=== PATIENT | female | born 1955 | race Caucasian/White ===

== ENCOUNTER 2019-02-15 07:35 | Inpatient (IN) | payer MEDICARE ==
[~2019-02-15] VITALS: Ht 154.9 cm; Wt 87.1 kg
[~2019-02-15 07:35] MED LIST: ACETAMINOPHEN 1000 MG/100 ML 100 ML IV ONE; ASPIRIN325 MG PO; ATORVASTATIN CA20 MG PO; CYMBALTA30 MG PO; GABAPENTIN300 MG PO; GLIPIZIDE ER5 MG PO; LIDOCAINE HCL (LTA) 4 ML SOLN ONE; LOSARTAN POTAS100 MG PO; NOVOLIN N100 UNIT/1 SC; NOVOLIN R100 UNIT/1 SC; PANTOPRAZOLE SO40 MG PO; SYNTHROID100 MCG PO
--- OUTSIDE RECORDS SUMMARY | 2019-02-15 07:38 | XMS REPORT | Clinical Summary ---
Author Author [facility] Organization [place] [facility] Address Unknown Phone Unavailable Care Team Providers Care Vice President Business & Corporate Development Name Role Phone Ana Faustin PCP Unavailable Allergies Comments Active Allergy Reactions Severity Noted Date Latex Sulfa (Sulfonamide Antibiotics) Medications End Date Status Medication Sig Dispensed Refills Start Date Active atorvastatin (LIPITOR) 40 atorvastatin 0 MG tablet 40 mg tablet Active pantoprazole (PROTONIX) pantoprazole 0 40 MG EC tablet 40 mg tablet,delaye d release Active DULoxetine (CYMBALTA) 60 duloxetine 60 0 MG capsule mg capsule,delay ed release Active levothyroxine (SYNTHROID) Synthroid 75 0 75 mcg tablet mcg tablet Active losartan (COZAAR) 50 MG losartan 50 0 tablet mg tablet Active insulin NPH (NovoLIN N Novolin N NPH 0 NPH U-100 Insulin) 100 U-100 Insulin unit/mL injection isophane 100 unit/mL subcutaneous susp Active insulin regular (NovoLIN Novolin R 0 R Regular U-100 Insuln) Regular U-100 100 unit/mL injection Insulin 100 unit/mL injection solution Active glipiZIDE (GLUCOTROL) 10 glipizide ER 0 MG 24 hr tablet 10 mg tablet, extended release 24 hr Active traMADol (ULTRAM) 50 mg Take 50 mg by 0 tablet mouth every 6 (six) hours as needed for moderate pain. Active gabapentin (NEURONTIN) Take 300 mg 0 300 mg capsule by mouth 3 (three) times a day. 08/04/2018 diazePAM (VALIUM) 5 MG Take 1 tablet 2 tablet 0 tablet (5 mg total) 8 by mouth every 6 (six) hours as needed for anxiety for up to 2 doses. Active Problems No known active problems Encounters Care Team Description Date Type Specialty Sundar Faustin MD Low back pain, unspecified back pain laterality, unspecified chronicity, with sciatica presence unspecified (Primary Dx) 08/10/2018 Office Visit Orthopedic Surgery Carrillo Morel MD Lumbar radiculopathy, chronic 08/06/2018 Hospital Radiology Encounter Carrillo Morel MD Pain of left hip joint (Primary Dx); Lumbar radiculopathy, chronic; Degeneration of intervertebral disc of lumbar region 08/03/2018 Office Visit Orthopedic Surgery after 02/14/2018 Social History Date Tobacco Use Types Packs/Day Years Used Never Smoker Smokeless Tobacco: Never Used Alcohol Use Drinks/Week oz/Week Comments No Alcohol Habits Answer Date Recorded How often do you have a drink containing alcohol? Never 08/03/2018 How many drinks containing alcohol do you have on Not asked a typical day when you are drinking? How often do you have six or more drinks on one Not asked occasion? Sex Assigned at Date Recorded Not on file Industry Job Start Date Occupation Not on file Not on file Not on file Travel End Travel History Travel Start No recent travel history available. Last Filed Vital Signs Time Taken Vital Sign Reading - Blood Pressure - - Pulse - - Temperature - - Respiratory Rate - - Oxygen Saturation - - Inhaled Oxygen - Concentration 08/10/2018 1:07 PM REFRIGERATION PERSON Weight 84.8 kg (187 lb) 08/10/2018 1:07 PM REFRIGERATION PERSON Height 154.9 cm (5' 1") 08/10/2018 1:07 PM REFRIGERATION PERSON Body Mass Index 35.33 Plan of Treatment Health Maintenance Due Date Last Done Comments BREAST CANCER SCREENING 2006 COLONOSCOPY SCREENING 2006 SHINGLES VACCINES (#1) 2006 INFLUENZA VACCINE 03/25/2019 Procedures Comments Procedure Name Priority Date/Time Associated Diagnosis MRI LUMBAR SPINE WO Routine 08/06/2018 Lumbar radiculopathy, CONTRAST 2:18 PM REFRIGERATION PERSON chronic XR LUMBAR SPINE 2 OR 3 VW Routine 08/03/2018 Pain of left hip joint 2:04 PM REFRIGERATION PERSON XR HIP 2-3 VIEWS LEFT Routine 08/03/2018 Pain of left hip joint 2:02 PM REFRIGERATION PERSON after 02/14/2018 Results * MRI Lumbar Spine Wo Contrast (08/06/2018 2:18 PM REFRIGERATION PERSON) Specimen Narrative Performed At [facility] Examination: MRI LUMBAR SPINE WO CONTRAST MRI LUMBAR SPINE WITHOUT CONTRAST: CLINICAL HISTORY:M54.16 Radiculopathylumbar region, [id number] conservative txpersistent sx COMPARISON:None available. TECHNIQUE: Multiplanar multisequence images were obtained through the lumbar including the following sequences:Sagittal T1, T2, STIR, axial T1, T2 MR images of the lumbar spine obtained without IV contrast. DISCUSSION: For counting purposes the lowest fully developed disc as L5-S1. There is normal alignment of the lumbar spine with preservation of lumbar lordosis. There is no evidence of expansile or destructive osseous lesion. The conus medullaris and nerve roots are normal with conus terminating at L1 level. No epidural mass or collection is seen.Schmorl node seen within the inferior endplate of T12. The paraspinal soft tissues are unremarkable. Multilevel degenerative discopathic changes and facet hypertrophy is noted resulting in the following findings when assessing the individual intervertebral disc levels: L5-S1: Disc bulge. Mild bilateral facet arthropathy. Otherwise, unremarkable. The central canal and neuroforamina are patent. L4-L5: [Disc bulge and tiny posterior annular fissure. Mild bilateral facet arthropathy. The central canal and neuroforamina are patent. L3-L4: Disc bulge and posterior annular fissure. Bilateral facet and ligamentum flavum hypertrophy. There is mild central canal and neural foraminal stenosis. L2-L3: [Unremarkable intervertebral disc, spinal canal, vertebral body and posterior neural arch. There is no evidence of significant central spinal canal or neuroforaminal stenosis.] L1-L2: [Unremarkable intervertebral disc, spinal canal, vertebral body and posterior neural arch. There is no evidence of significant central spinal canal or neuroforaminal stenosis.] IMPRESSION: 1. Mild spondylitic changes seen at L3-L4 and L4-L5 associated tiny posterior fissures. 2. At L3-L4 disc bulge and facet arthropathy resulting in mild central canal and neural foraminal stenosis. 3. Negative for disc protrusion or nerve root impingement. [facility] [id number] Procedure Note Hm Interface, Radiology Results Incoming - 08/06/2018 5:37 PM REFRIGERATION PERSON Examination: MRI LUMBAR SPINE WO CONTRAST MRI LUMBAR SPINE WITHOUT CONTRAST: CLINICAL HISTORY: M54.16 Radiculopathy lumbar region, Radiculopathy 6wks conservative tx persistent sx COMPARISON: None available. TECHNIQUE: Multiplanar multisequence images were obtained through the lumbar including the following sequences: Sagittal T1, T2, STIR, axial T1, T2 MR images of the lumbar spine obtained without IV contrast. DISCUSSION: For counting purposes the lowest fully developed disc as L5-S1. There is normal alignment of the lumbar spine with preservation of lumbar lordosis. There is no evidence of expansile or destructive osseous lesion. The conus medullaris and nerve roots are normal with conus terminating at L1 level. No epidural mass or collection is seen. Schmorl node seen within the inferior endplate of T12. The paraspinal soft tissues are unremarkable. Multilevel degenerative discopathic changes and facet hypertrophy is noted resulting in the following findings when assessing the individual intervertebral disc levels: L5-S1: Disc bulge. Mild bilateral facet arthropathy. Otherwise, unremarkable. The central canal and neuroforamina are patent. L4-L5: [Disc bulge and tiny posterior annular fissure. Mild bilateral facet arthropathy. The central canal and neuroforamina are patent. L3-L4: Disc bulge and posterior annular fissure. Bilateral facet and ligamentum flavum hypertrophy. There is mild central canal and neural foraminal stenosis. L2-L3: [Unremarkable intervertebral disc, spinal canal, vertebral body and posterior neural arch. There is no evidence of significant central spinal canal or neuroforaminal stenosis.] L1-L2: [Unremarkable intervertebral disc, spinal canal, vertebral body and posterior neural arch. There is no evidence of significant central spinal canal or neuroforaminal stenosis.] IMPRESSION: 1. Mild spondylitic changes seen at L3-L4 and L4-L5 associated tiny posterior fissures. 2. At L3-L4 disc bulge and facet arthropathy resulting in mild central canal and neural foraminal stenosis. 3. Negative for disc protrusion or nerve root impingement. [facility] [place]-[id number] Performing Organization Address City/State/Zipcode Phone Number [employer] [address] [place] [address] * XR Lumbar Spine 2 Or 3 Vw (08/03/2018 2:04 PM REFRIGERATION PERSON) Specimen Narrative Performed At [facility] 4 views of the lumbar spine shows the patient has no scoliosis present, disc space narrowing present at L5-S1. Performing Organization Address City/[facility] Phone Number [employer] [address] [place] [address] * XR Hip 2-3 View Left (08/03/2018 2:02 PM REFRIGERATION PERSON) Specimen Narrative Performed At [facility] AP pelvis and left hip lateral x-ray shows the patient is adequate joint space left hip joint, mild enthesopathy present by the gluteus medius insertion. Performing Organization Address City/State/[facility] Phone Number [facility] [address] [place] [address] after 02/14/2018 Insurance Type Payer Benefit Subscriber ID Effective Phone Address Plan / Dates Group PPO HUMANA MEDICARE HUMANA xxxxxxxxx 2016-P MEDICARE resent PPO/PFFS/E RS [facility] Advance Directives Patient has advance care planning documents on file. For more information, akash truong contact: Angel Hector [address] [place] [address]
[2019-02-15] MEDS ORDERED: CEFAZOLIN SOD 1 GM/NS 50ML 100 ML IV ONE (08:12)
[2019-02-15] MEDS ORDERED: FAMOTIDINE 20 MG/2 ML VIAL IV ONE (08:37)
[2019-02-15] MEDS ORDERED: METOCLOPRAMIDE HCL 10 MG/2ML VIAL ONE ×2 (08:37→15:58)
[2019-02-15 09:16] LABS: BASOPHILS # (AUTO) 0.1 (0.0-0.1); BASOPHILS % 0.9 % (0.0-1.0); EOSINOPHILS # (AUTO) 0.3 (0.0-0.4); EOSINOPHILS % 3.3 % (0.0-6.0); HEMATOCRIT 40.6 % (34.2-44.1); HEMOGLOBIN 13.7 g/dL (12.0-16.0); LYMPHOCYTES % 21.6 % (18.0-39.1); MEAN CORPUSCULAR HEMOGLOBIN 27.7 pg (28-32); MEAN CORPUSCULAR HGB CONC 33.7 g/dL (31-35); MONOCYTES # (AUTO) 0.9 (0.2-0.8); MONOCYTES % 9.7 % (4.4-11.3); NEUTROPHILS # (AUTO) 5.9 (2.1-6.9); NEUTROPHILS % 64.1 % (38.7-80.0); PLATELET COUNT 303 x10e3/uL (140-360); RED BLOOD COUNT 4.95 x10e6/uL (3.6-5.1); RED CELL DISTRIBUTION WIDTH 13.2 % (11.7-14.4)
[2019-02-15 09:31] LABS: CALCIUM 9.7 mg/dL (8.4-10.2); CREATININE, SERUM 0.96 mg/dL (0.57-1.11)
--- NOTE | 2019-02-15 10:14 | Diagnostic Imaging Report ---
EXAMINATION: PA and lateral views of the chest. COMPARISON: None CLINICAL HISTORY: Preoperative study DISCUSSION: The lungs are well-inflated. No focal airspace consolidation, pleural effusion, or pneumothorax. Cardiomediastinal contour and pulmonary vasculature are within normal limits. Surgical clips along the right anterolateral chest wall. Laparoscopic Gastric band apparatus partially visualized. Multilevel degenerative disc changes. No acute osseous abnormality. IMPRESSION: No acute cardiopulmonary abnormalities. Signed by: Dr. Virgilio Marinelli M.D. on 02/15/2019 10:11 AM
[2019-02-15] MEDS: SODIUM CHLORIDE 0.9% 1000ML 1,000 ML IV SCH ×2 (12:27→21:48)
[2019-02-15] MEDS ORDERED: MORPHINE SULFATE 2 MG/ML SYR 1ML IV PRN (12:30)
[2019-02-15] MEDS ORDERED: BUPIVACAINE 0.25% 30ML SDV INJ ONE (12:56)
[2019-02-15] MEDS ORDERED: SUGAMMADEX SODIUM 200 MG/2 ML VIAL IV ONE (14:53)
[2019-02-15] MEDS ORDERED: ONDANSETRON HCL INJ 2MG/ML 2ML 2 MG/ML VIAL ONE ×2 (15:52→17:11)
[2019-02-15] MEDS ORDERED: SODIUM CHLORIDE 0.9% 1000ML 1,000 ML ONE (15:55)
[2019-02-15] MEDS ORDERED: FENTANYL CITRATE/PF 100MCG/2 ML INJ ONE ×2 (15:59→18:41)
[2019-02-15] MEDS ORDERED: HYDROMORPHONE 2MG/ML 2 MG/ML ML ONE (16:12)
[2019-02-15] MEDS ORDERED: PROMETHAZINE HCL (IM) 25 MG/ML VIAL ONE (16:13)
--- OUTSIDE RECORDS SUMMARY | 2019-02-15 16:25 | XMS REPORT | Clinical Summary ---
Author Author [facility] Organization [place] [facility] Address Unknown Phone Unavailable Care Team Providers Care Outsole Splicer Name Role Phone Ana Faustin PCP Unavailable [...] Inhaled Oxygen - Concentration 08/10/2018 1:07 PM JUNCTION MAKER Weight 84.8 kg (187 lb) 08/10/2018 1:07 PM JUNCTION MAKER Height 154.9 cm (5' 1") 08/10/2018 1:07 PM JUNCTION MAKER Body Mass Index 35.33 Plan of Treatment Health Maintenance Due Date Last Done Comments BREAST CANCER SCREENING 2006 COLONOSCOPY SCREENING 2006 SHINGLES VACCINES (#1) 2006 INFLUENZA VACCINE 03/25/2019 Procedures Comments Procedure Name Priority Date/Time Associated Diagnosis MRI LUMBAR SPINE WO Routine 08/06/2018 Lumbar radiculopathy, CONTRAST 2:18 PM JUNCTION MAKER chronic XR LUMBAR SPINE 2 OR 3 VW Routine 08/03/2018 Pain of left hip joint 2:04 PM JUNCTION MAKER XR HIP 2-3 VIEWS LEFT Routine 08/03/2018 Pain of left hip joint 2:02 PM JUNCTION MAKER after 02/14/2018 Results * MRI Lumbar Spine Wo Contrast (08/06/2018 2:18 PM JUNCTION MAKER) Specimen Narrative Performed At [facility] Examination: MRI LUMBAR SPINE WO CONTRAST MRI LUMBAR SPINE WITHOUT CONTRAST: CLINICAL HISTORY:M54.16 Radiculopathylumbar region, [id number] conservative txpersistent sx COMPARISON:None available. TECHNIQUE: Multiplanar [...] for disc protrusion or nerve root impingement. [facility] [id number] Procedure Note Hm Interface, Radiology Results Incoming - 08/06/2018 5:37 PM JUNCTION MAKER Examination: MRI LUMBAR SPINE WO CONTRAST MRI [...] for disc protrusion or nerve root impingement. [id number] Performing Organization Address City/State/Zipcode Phone Number [employer] [address] [place] [address] * XR Lumbar Spine 2 Or 3 Vw (08/03/2018 2:04 PM JUNCTION MAKER) Specimen Narrative Performed At [facility] 4 views of the lumbar spine shows the patient has no scoliosis present, disc space narrowing present at L5-S1. Performing Organization Address City/[facility] Phone Number [employer] [address] [place] [address] * XR Hip 2-3 View Left (08/03/2018 2:02 PM JUNCTION MAKER) Specimen Narrative Performed At [facility] AP pelvis and left hip lateral x-ray shows the patient is adequate joint space left hip joint, mild enthesopathy present by the gluteus medius insertion. Performing Organization Address City/State/[facility] Phone Number [facility] [address] [place] [address] after 02/14/2018 Insurance Type Payer Benefit Subscriber ID Effective Phone Address Plan / Dates Group PPO HUMANA MEDICARE HUMANA xxxxxxxxx 2016-P MEDICARE resent PPO/PFFS/E RS [facility] Advance Directives Patient has advance care planning documents on file. For more information, akash truong contact: Angel Hector [address] [place] [address]
--- OUTSIDE RECORDS SUMMARY | 2019-02-15 16:26 | XMS REPORT ---
Author [facility] Address Unknown Phone Unavailable Care Team Providers Care Licensed Occupational Therapy Assistant Name Role Phone Delmy MURCIA Unavailable Unavailable Problems This patient has no known problems. Allergies, Adverse Reactions, Alerts This patient has no known allergies or adverse reactions. Medications This patient has no known medications. Results Test Description Test Time Test Comments Text Results Atomic Results Result Comments CHEST 2 VIEWS 2019-02-15 10:09:00 [place] [address] Patient Name: TAMIR FLORENCE MR #: [id number] : 1955 Age/Sex: 63/F Req #: [id number] Adm Physician: Ordered by: ALEXA MURCIA MD Report #: [id number] Location: OR Room/Bed: Procedure: [id number] DX/CHEST 2 VIEWS Exam Date: 02/15/19 Exam Time: 0903 REPORT STATUS: Signed EXAMINATION: PA and lateral views of the chest. COM PARISON: None CLINICAL HISTORY: Preoperative study DISCUSSION: The lungs are well-inflated. No focal airspace consolidation, pleural effusion, or pneumothorax. Cardiomediastinal contour and pulmonary vasculature are within normal limits. Surgical clips along the right anterolateral chest wall. Laparoscopic Gastric band apparatus partially visualized. Multilevel degenerative disc changes. No acute osseous abnormality. IMPRESSION: No acute cardiopulmonary abnormalities. Signed by: Dr. Leonard Underwood M.D. on 02/15/2019 10:11 AM Dictated By: LEONARD UNDERWOOD MD 1011 Transcribed By: ANGELINE on 02/15/19 1011 COPY TO: ALEXA MURCIA MD
--- NOTE | 2019-02-15 16:30 | NUR ---
RECEIVED PATIENT FROM RECOVERY. PATIENT A/O X3, EVEN RESPIRATIONS ON 2LNC. LUNG SOUNDS CLEAR TO AUSCULTATION. RIGHT HAND 20 GAUGE IV WITH NS @ 125 CC/HR. ABDOMINAL LAPAROSCOPIC INCISIONS CLEAN/DRY/INTACT. NO DRAINAGE. PATIENT DUE TO VOID. SCD'S IN PLACE BILATERALLY. PATIENT NPO AT THIS TIME. CALL LIGHT IN REACH WILL CONTINUE TO MONITOR.
[2019-02-15 16:57] VITALS: BP 122/63
[2019-02-15] MEDS ORDERED: SCOPOLAMINE 1.5 MG PATCH TOP SCH (17:00)
[2019-02-15] MEDS: ONDANSETRON HCL INJ 2MG/ML 2ML 2 MG/ML VIAL IV PRN ×2 (17:03→18:30)
[2019-02-15] MEDS ORDERED: PROPOFOL IV EMULSION 10 MG/ML 20 ML VIAL ONE (17:11)
[2019-02-15] MEDS ORDERED: NEOSTIGMINE 5 MG/5ML SYR ONE (17:11)
[2019-02-15] MEDS ORDERED: DEXAMETHASONE SOD PHOS INJ 4 MG/ML VIAL ONE (17:11)
[2019-02-15] MEDS ORDERED: SEVOFLURANE INHAL SOLN 250 ML PEN BTL ONE (17:11)
[2019-02-15] MEDS ORDERED: LIDOCAINE HCL 2% JELLY 5 ML TUBE ONE (17:11)
[2019-02-15] MEDS ORDERED: ROCURONIUM BROMIDE 10 MG/ML 5ML VIAL ONE (17:11)
[2019-02-15] MEDS ORDERED: GLYCOPYRROLATE INJ 1MG/ 5 ML SYR ONE (17:11)
[2019-02-15] MEDS ORDERED: LIDOCAINE HCL 2% LOCAL INJ 5 ML SDV VIAL INJ ONE (17:11)
[2019-02-15 17:18] VITALS: BP 122/63
[2019-02-15 17:27] VITALS: BP 122/63
[2019-02-15] MEDS ORDERED: DEXTROSE 50% SYRINGE 50 ML IV PRN (17:30)
[2019-02-15] MEDS ORDERED: INSULIN LISPRO 100 UNIT/1 ML 3ML VIAL SQ ONE (18:15)
[2019-02-15] MEDS: MORPHINE SULFATE INJ 4 MG/ML INJ 1ML IV PRN ×2 (18:30→21:20)
[2019-02-15] MEDS ORDERED: MIDAZOLAM HCL 2 MG/2 ML VIAL ONE (18:41)
--- NOTE | 2019-02-15 19:23 | History and Physical ---
CHIEF COMPLAINT: "I've weight loss surgery." HISTORY OF PRESENT ILLNESS: This is a 63-year-old white woman, who presents to [facility] with diagnosis of obesity, BMI 36, complicating underlying hypertension, type 2 diabetes, and obstructive sleep apnea. Today, the patient underwent successful laparoscopic sleeve gastrectomy. The patient actually underwent a revision of gastric banding to sleeve gastrectomy. The patient tolerated the surgery well. Her main complaint at this time is pain in the left upper quadrant area as well as insomnia. The patient had blood work done today and was found to have BUN and creatinine of 21 and 0.96, respectively. REVIEW OF SYSTEMS: GENERAL: The patient lost weight lately by participating in caloric restriction. No fever or chills. HEENT: No headaches. No visual changes. CARDIOVASCULAR/RESPIRATORY: No chest pain, shortness of breath, or cough. GI: The patient is complaining of pain in the left upper quadrant area. No nausea, vomiting, diarrhea, or constipation. : No UTI symptoms. Ballard catheter is removed. NEUROMUSCULAR: No weakness or numbness, but she does have arthritic joint pain at times. ALLERGIES: 1. SULFA ANTIBIOTICS. 2. LATEX. MEDICATIONS: 1. Aspirin 325 mg daily. 2. Atorvastatin 40 mg at bedtime. 3. Duloxetine 60 mg daily. 4. Gabapentin 300 mg daily. 5. Glipizide Extended Release tab 10 mg daily. 6. Novolin R insulin 20 units subcutaneous t.i.d. with meals. 7. Levothyroxine 100 mcg daily. 8. Losartan 50 mg daily. 9. Novolin N insulin 50 units subcutaneous every night. 10. Pantoprazole 40 mg daily. PAST MEDICAL HISTORY: 1. Coronary artery disease (coronary artery stent placement in 2011). 2. Obesity, BMI 36. 3. Hyperlipidemia. 4. Depression. 5. Type 2 diabetes mellitus. 6. Diabetic peripheral neuropathy. 7. Hypothyroidism. 8. GERD. 9. Hypertensive heart disease, now resolved clinically. 10. Obstructive sleep apnea (the patient uses CPAP machine at night). 11. History of breast cancer requiring right lumpectomy put on past medical history. FAMILY HISTORY: Multiple family members with diabetes mellitus including four sisters and brother and her mother. SOCIAL HISTORY: This woman is , lives with her . She is retired. No history of tobacco or alcohol use. SURGICAL HISTORY: 1. Gastric banding in 2011. 2. Coronary artery stent placement in 2011. 3. Laparoscopic cholecystectomy in 2011. 4. Right lumpectomy because of breast cancer. 5. Bilateral carpal tunnel surgery twice. PHYSICAL EXAMINATION: GENERAL: She is awake, alert, and fluent. Her and sister at bedside. VITAL SIGNS: Height 5 feet 1 inch, weight 192 pounds, BMI 36. Blood pressure is 122/68, pulse 94, respiratory rate 18, temperature 96.1, oxygen 96% on 2 L oxygen. INTEGUMENT: Skin is warm and dry. No pallor, jaundice, or diaphoresis. HEENT: Anicteric sclerae. Moist mucous membranes. NECK: Supple. CARDIOVASCULAR: Tachycardic rate, regular rhythm. LUNGS: No rales. No rhonchi or wheezes. ABDOMEN: Soft. Bowel sounds are appreciated at this time. She does have tenderness on palpating the left upper quadrant abdominal area. EXTREMITIES: No edema. She has sequential compression devices on her bilateral legs. NEUROLOGIC: Intact. DIAGNOSES: 1. Obesity, BMI complicating underlying hypertension, sleep apnea, and type 2 diabetes mellitus. 2. Status post revision of gastric banding to sleeve gastrectomy. 3. Hypertensive heart disease. 4. Type 2 diabetes mellitus. 5. Obstructive sleep apnea. PLAN: 1. Pain control. 2. Encourage incentive spirometer used to prevent atelectasis. 3. Blood glucose control. 4. Mobilize the patient. 5. Agree with enoxaparin to prevent deep venous thrombosis. 6. Restart aspirin since the patient has coronary artery disease. I spent 35 minutes in the care of the patient. I would like to thank you Dr. Bk Mckeon for involving me in the care of this patient. MD AMISH Ivory/NEMESIO /[id number] MTDD
[2019-02-15 20:00] VITALS: BP 128/60
[2019-02-15] MEDS: INSULIN LISPRO 100 UNIT/1 ML 3ML VIAL SQ SCH (20:21)
[2019-02-15] MEDS ORDERED: ATORVASTATIN 40 MG TAB PO SCH (21:00)
[2019-02-15] MEDS ORDERED: NPH, HUMAN INSULIN ISOPHANE 100 UNIT/1 ML 3ML VIAL SQ SCH (21:00)
[2019-02-15] MEDS ORDERED: ATORVASTATIN 20 MG TAB PO SCH (21:00)
[2019-02-15] MEDS ORDERED: TEMAZEPAM 15 MG CAP PO SCH (21:00)
[2019-02-15] MEDS: ENOXAPARIN SOD INJ 40 MG/0.4 ML SYR SC SCH (21:27)
--- NOTE | 2019-02-15 22:09 | Operative Report ---
DATE OF PROCEDURE: 02/15/2019 SURGEON: Bk Mckeon MD PREOPERATIVE DIAGNOSES: 1. Morbid obesity, BMI of 36. 2. Hypertension. 3. Type 2 diabetes mellitus. 4. Nausea and vomiting. 5. History of placement of adjustable gastric band. POSTOPERATIVE DIAGNOSES: 1. Morbid obesity, BMI of 36. 2. Hypertension. 3. Type 2 diabetes mellitus. 4. Nausea and vomiting. 5. History of placement of adjustable gastric band. PREOPERATIVE INDICATIONS: 1. Treat disease, prevent complications related to comorbid conditions of obesity. 2. Removal of adjustable gastric band due to intractable nausea and vomiting. PROCEDURES: 1. Laparoscopic removal of adjustable gastric band. 2. Laparoscopic vertical sleeve gastrectomy. ANESTHESIA: General. OPERATIONS AND MAINTENANCE SPECIALIST: Lester Malcolm, surgical specialist (needed due to complexity of case). FLUIDS: 800 mL of crystalloid. EBL: 30 mL. DRAINS: None. COMPLICATIONS: None. SPECIMENS: 1. Laparoscopic adjustable gastric band with port and catheter. 2. Partial stomach. GRAFTS: None. FINDINGS: 1. Lap band with adhesions from previous surgery. 2. Negative intraoperative EGD leak test. PROCEDURE IN DETAIL: The patient was brought to the operating room and was intubated under general endotracheal anesthesia. She was sterilely prepped and draped in the usual fashion. A preprocedure pause was performed identifying the patient, use of perioperative antibiotics, intended procedure, and the staff surgeon. Access was gained via a 5-mm left subcostal incision using a Veress needle. The abdomen was insufflated. Four additional trocars were placed in the standard position and a liver retractor was used to expose the lab band and the anterior stomach. The lab band was then dissected free of its attachments using the Harmonic scalpel. It was then cut with scissors and removed through the right periumbilical port site, part of the intraabdominal catheter was still left behind, which was to be removed with subcutaneous port. I then lysed the adhesions overlying the stomach from the previous band using the Harmonic scalpel. Once this was completed, I then mobilized the greater curvature of the stomach from about 3 cm proximal to the pyloric valve to the left eric of the diaphragm using the [place] LigaSure device. An adult-sized endoscope was then inserted and placed along the lesser curvature of the stomach. The greater curvature of the stomach was then resected with multiple firings of an Endo RAE 60 mm purple load Eniram stapling device, which was reinforced with SeamGuard. Once the specimen was resected, it was removed through the right periumbilical port site. The port site was closed with #0 Vicryl suture using Osvaldo-Pamela technique in a [id number] fashion. We did intraoperative EGD leak test, no leaks were identified. I then verified hemostasis. Removed the liver retractor and desufflated the abdomen. The trocars were removed. I then turned my attention to the subcutaneous port. A secondary incision was made overlying the previous scar. Dissection was carried through subcutaneous tissue until the port was identified. It was then freed from tis surrounding attachments using electrocautery. The port was then removed along with remainder of the intraabdominal portion of the catheter and was passed off the back table. We then irrigated the right periumbilical port site with saline. The port site was closed with 4-0 Monocryl suture in subcuticular fashion and the large secondary incision where the subcutaneous lab band port was, was closed with 3-0 Vicryl suture and then with 4-0 Monocryl suture in a subcuticular fashion. A 0.25% bupivacaine was used both at the preperitoneal incisional sites. Dermabond dressing was applied. The patient tolerated the procedure well. Type of wound was type 2, clean and contaminant. Bk Mckeon MD Jn/FREDRICKL /[id number]
[2019-02-15 22:30] VITALS: BP 128/60
[2019-02-16 00:22] VITALS: BP 137/71
[2019-02-16] MEDS: MORPHINE SULFATE INJ 4 MG/ML INJ 1ML IV PRN ×2 (00:24→05:31)
[2019-02-16] MEDS: ONDANSETRON HCL INJ 2MG/ML 2ML 2 MG/ML VIAL IV PRN (00:30)
[2019-02-16 04:00] VITALS: BP 140/80
[2019-02-16] MEDS: SODIUM CHLORIDE 0.9% 1000ML 1,000 ML IV SCH (05:31)
[2019-02-16] MEDS ORDERED: LEVOTHYROXINE SODIUM 100 MCG TAB PO SCH (06:00)
[2019-02-16 06:05] LABS: BASOPHILS % 0.1 % (0.0-1.0); EOSINOPHILS % 0.1 % (0.0-6.0); HEMATOCRIT 38.9 % (34.2-44.1); LYMPHOCYTES # (AUTO) 1.2 (1.0-3.2); LYMPHOCYTES % 8.2 % (18.0-39.1); MEAN CORPUSCULAR HEMOGLOBIN 27.5 pg (28-32); MEAN CORPUSCULAR HGB CONC 33.4 g/dL (31-35); MEAN CORPUSCULAR VOLUME 82.2 fL (81-99); MONOCYTES % 6.8 % (4.4-11.3); NEUTROPHILS % 84.4 % (38.7-80.0); PLATELET COUNT 312 x10e3/uL (140-360); RED BLOOD COUNT 4.73 x10e6/uL (3.6-5.1)
[2019-02-16 06:23] LABS: ALANINE AMINOTRANSFERASE 33 IU/L (0-55); ALBUMIN 3.4 g/dL (3.5-5.0); ALKALINE PHOSPHATASE 86 IU/L (40-150); ANION GAP 15.3 mmol/L (8-16); BLOOD UREA NITROGEN 16 mg/dL (7-26); BUN/CREATININE RATIO 19 (6-25); CALCIUM 8.7 mg/dL (8.4-10.2); CARBON DIOXIDE 20 mmol/L (22-29); CHLORIDE 103 mmol/L (98-107); CREATININE, SERUM 0.86 mg/dL (0.57-1.11); EST GLOMERULAR FILTRATION RATE > 60 ML/MIN (60-); GLUCOSE 256 mg/dL (74-118); MAGNESIUM 1.9 MG/DL (1.3-2.1); PHOSPHORUS 3.2 MG/DL (2.3-4.7); POTASSIUM 4.3 mmol/L (3.5-5.1); SODIUM 134 mmol/L (136-145)
[2019-02-16] MEDS ORDERED: INSULIN REGULAR, HUMAN 100 UNIT/1 ML 3ML VIAL SQ SCH (07:30)
--- NOTE | 2019-02-16 07:42 | NUR ---
RECEIVED PATIENT AWAKE RESTING IN BED NO SIGNS OF DISTRESS AT THIS TIME. BED LOW, WHEELS LOCKED, SIDE RAILS X2. CALL LIGHT IN REACH WILL CONTINUE TO MONITOR PATIENT.
[2019-02-16] MEDS ORDERED: HYDROCODONE/APAP 7.5MG-325MG 1 EA TAB PO PRN (08:00)
[2019-02-16 08:02] VITALS: BP 135/60
--- NOTE | 2019-02-16 08:32 | NUR ---
Progress note: S: No complaints O: AF, VSS Gen- no acute distress Abd- soft, incisions c/d/i A/P: POD 1, s/p lap revision of band to sleeve -Clears, ambulate, IS, OOB to chair -DC home today -Diet and follow up instructions given to patient
[2019-02-16] MEDS ORDERED: DULOXETINE HCL 30 MG DELAYED RELEASE PO SCH (09:00)
[2019-02-16] MEDS ORDERED: ASPIRIN 325 MG TAB PO SCH (09:00)
[2019-02-16] MEDS ORDERED: PANTOPRAZOLE SOD 40 MG TABEC PO SCH (09:00)
[2019-02-16] MEDS ORDERED: LOSARTAN POTASSIUM 100 MG TAB PO SCH (09:00)
[2019-02-16] MEDS ORDERED: GABAPENTIN 300 MG CAP PO SCH (09:00)
[2019-02-16] MEDS: ENOXAPARIN SOD INJ 40 MG/0.4 ML SYR SC SCH (09:11)
[2019-02-16] MEDS: INSULIN LISPRO 100 UNIT/1 ML 3ML VIAL SQ SCH (09:37)
--- NOTE | 2019-02-16 09:57 | Discharge Summary ---
ADMITTING DIAGNOSES: 1. Obesity, BMI of 36, complicating underlying hypertension and type 2 diabetes mellitus. 2. Hypertensive heart disease. 3. Type 2 diabetes mellitus. DISCHARGE DIAGNOSES: 1. Status post laparoscopic removal of adjustable gastric band and vertical sleeve gastrectomy. 2. Obesity, BMI 36, complicating underlying hypertension and type 2 diabetes mellitus. 3. Hypertensive heart disease. 4. Type 2 diabetes mellitus. HOSPITAL COURSE: This is a 63-year-old white woman, who was admitted to [facility] for elective bariatric surgery. The patient underwent successful laparoscopic removal of adjustable gastric band with subsequent vertical sleeve gastrectomy. This surgery was performed by her general surgeon, namely, Dr. Bk Mckeon. Her brief hospitalization was unremarkable. During the surgery, she was found to have adhesions from her previous laparoscopic gastric banding procedure. DISCHARGE CONDITION: The patient's condition on discharge is stable. On day of discharge, the patient was tolerating a clear liquid diet. DISCHARGE MEDICATIONS: 1. Tylenol no. 3, one every 4 hours p.r.n. pain, 25 prescribed, no refills. 2. Zofran 4 mg one every 6 hours p.r.n. nausea and vomiting, 15 prescribed, no refills. 3. Aspirin 325 mg daily. 4. Atorvastatin 40 mg at bedtime. 5. Duloxetine 60 mg daily. 6. Gabapentin 300 mg daily. 7. Glipizide Extended Release 10 mg daily. 8. Novolin R insulin 20 units subcutaneous t.i.d. with meals. 9. Levothyroxine 100 mcg daily. 10. Losartan 50 mg daily. 11. Novolin N insulin 60 units subcutaneous every night. 12. Pantoprazole 40 mg daily. FOLLOWUP INSTRUCTIONS: The patient instructed to follow up with Dr. Bk Mckeon, in 1 week and with her primary care physician in 2 weeks. MD AMISH Ivory/NEMESIO /[id number] cc: Bk Mckeon MD
--- NOTE | 2019-02-16 10:27 | NUR ---
Diet education - Learner(s): pt Time spent: 20minutes Barriers: none Cultural/Language Modifications: No cultural/language modifications noted. Pt speaks [place]. Readiness: acceptance Method: explanation/ discussion, handout Topics: Bariatric diet (clear liquid, full liquid, pureed) Understanding/Compliance: good compliance expected, needs reinforcement at outpatient bariatric clinic, all questions have been answered Signed by Elly Jose, MS, RD, LD
[2019-02-16] MEDS ORDERED: ONDANSETRON HCL 4 MG ORAL DISINTEGRATING TAB PO PRN (10:30)
[2019-02-16 10:36] VITALS: BP 135/60
[2019-02-16] MEDS ORDERED: TYLENOL WITH C1 EACH PO (10:40)
[2019-02-16] MEDS ORDERED: ZOFRAN4 MG PO (10:41)
--- NOTE | 2019-02-16 11:00 | NUR ---
REMOVED PATIENTS IV. CATHETER TIP INTACT AND PRESSURE DRESSING APPLIED.
--- NOTE | 2019-02-16 11:15 | NUR ---
Visit made by the Spiritual Care Department Pastoral Visitor, Jessica Gutierrez. PV provided pastoral presence, prayer, hospitality, and supportive listening. Pastoral Visitor informed pt/family of the scope of Rn Care Manager Services and availability. ERMA MCCLRUE [employer] Programming Professor Spiritual Care Department O: [phone] Pager: [phone] ([phone] number calling from)
--- NOTE | 2019-02-16 11:17 | NUR ---
PATIENT DISCHARGED FROM FACILITY PATIENT GATHERED ALL PERSONAL BELONGINGS AND DISCHARGE INSTRUCTIONS PRESCRIPTIONS GIVEN TO PATIENT LEFT UNIT IN WHEELCHAIR AND WENT HOME VIA PRIVATE AUTO NO SIGNS OF DISTRESS LEAVING FACILITY
== END 2019-02-16 11:17 | disposition home or self-care (01) | DRG 621 ==
LOC: OR 07:35 → PACU V 15:27 → MED/SURG 16:29
PROVIDERS: ADMIT Internal Medicine; ATTEND Internal Medicine
PROC: 0DP64CZ Removal of Extraluminal Device from Stomach, Percutaneous Endoscopic Approach (ICD-10-PCS; 2019-02-15)
PROC: 0DB64Z3 Excision of Stomach, Percutaneous Endoscopic Approach, Vertical (ICD-10-PCS; principal; 2019-02-15 10:00)
DX: E66.01 Morbid (severe) obesity due to excess calories (principal); I10 Essential (primary) hypertension; R11.2 Nausea with vomiting, unspecified; E11.9 Type 2 diabetes mellitus without complications; I11.9 Hypertensive heart disease without heart failure
CPT/HCPCS: 36415; 71046; 80048; 80053; 82948; 83735; 84100; 85025; J0690; J1100; J1650; J2001; J2250; J2270; J2405; J2550; J2765; J3010; J7030; Q0162